=== PATIENT | male | born 1965 | race Caucasian/White ===

== ENCOUNTER 2019-12-05 20:22 | Observation (INO) | payer OTHER ==
[~2019-12-05] VITALS: Ht 172.7 cm; Wt 117.9 kg
[2019-12-05 20:27] VITALS: BP 144/82
--- NOTE | 2019-12-05 20:45 | NUR ---
PT AMBULATED TO BED 3.
--- NOTE | 2019-12-05 20:49 | NUR ---
PT 54 Y/O MALE BIB DAUGHTER FOR SYCOPAL EPISODE. PER PT HE HAS BEEN FEELING DIZZY ALL DAY AT WORK AND WHEN HE WAS EATING DINNER HE PASSED OUT. PER DAUGHTER PT HIT HEAD WHEN HE PASSED OUT. NEURO ASSESSMENT DONE. PT AAO X4. PERRL. SPEECH CLEAR. UE AND LE EQUAL STRENGTH. PT LUNGS ARE CLEAR A/P BILAT. PT NOTED WITH COUGH X 1 DAY. FEBRILE. TEMP 102.6. COOLING MEASURES IN PLACE. BS X4 PRESENT. DENIES N/V. DIARRHEA X 2 DAYS. DAUGHTER AT BEDSIDE. MED HX: NONE ALLERGIES: NKA
[2019-12-05] MEDS ORDERED: NACL 0.9% 1,000 ML IV ONE (20:50)
--- NOTE | 2019-12-05 20:54 | NUR ---
XRAY AT BEDSIDE.
[2019-12-05 21:09] LABS: BASOPHILS # (AUTO) 0.1 K/uL (0.00-0.22); BASOPHILS % (AUTO) 1.2 % (0.0-2.0); EOSINOPHILS % (AUTO) 0.2 % (0.0-4.0); HEMATOCRIT 31.4 % (36-52); LYMPHOCYTES # (AUTO) 0.6 K/uL (2.0-11.5); LYMPHOCYTES % (AUTO) 11.2 % (20.5-51.1); MEAN CORPUSCULAR HEMOGLOBIN 23 pg (27-31); MEAN CORPUSCULAR HGB CONC 32 g/dL (33-37); MEAN CORPUSCULAR VOLUME 71.2 fL (80-94); MONOCYTES % (AUTO) 17.4 % (1.7-9.3); NEUTROPHILS # (AUTO) 3.8 K/uL (1.8-7.7); PLATELET COUNT (AUTO) 168 K/uL (140-450); RED BLOOD CELL COUNT(AUTO) 4.41 MIL/uL (4.20-6.10); RED CELL DISTRIBUTION WIDTH 19.3 % (11.6-13.7); WHITE BLOOD COUNT (AUTO) 5.5 K/uL (4.8-10.8)
[2019-12-05] MEDS ORDERED: ACETAMINOPHEN EXTRA STRENGTH 500 MG TAB PO ONE (21:10)
--- NOTE | 2019-12-05 21:12 | NUR ---
PT TAKEN TO CT.
--- NOTE | 2019-12-05 21:23 | NUR ---
PT RETURNED FROM CT IN BED.
[2019-12-05 21:30] LABS: ALBUMIN 3.7 g/dL (3.4-5.0); ANION GAP 14.5 (8-16); CARBON DIOXIDE 24.6 mmol/L (21-32); CREATININE 1.4 mg/dL (0.6-1.3); POTASSIUM 4.1 mmol/L (3.5-5.1); TOTAL BILIRUBIN 0.6 mg/dL (0.0-1.0)
--- NOTE | 2019-12-05 22:57 | NUR ---
DR BLANTON AT BEDSIDE.
[2019-12-05] MEDS ORDERED: ONDANSETRON 4 MG/2 ML VIAL IVP PRN (23:05)
[2019-12-05] MEDS ORDERED: ASPIRIN 81 MG TAB.CHEW PO ONE (23:05)
[2019-12-05] MEDS ORDERED: MORPHINE SULFATE 4 MG/ML SYR IVP PRN (23:05)
[2019-12-05] MEDS ORDERED: ZOLPIDEM 5 MG TAB PO PRN (23:05)
[2019-12-05] MEDS ORDERED: HYDROcodone/APAP 5/325 MG 1 TAB TAB PO PRN (23:05)
[2019-12-05] MEDS ORDERED: ALBUTEROL 0.083% 2.5 MG/3 ML NEBU INH PRN (23:05)
[2019-12-05] MEDS ORDERED: ACETAMINOPHEN 325 MG TAB PO PRN (23:05)
[2019-12-05] MEDS ORDERED: LORazepam 2 MG/ML VIAL IVP PRN (23:05)
--- NOTE | 2019-12-05 23:25 | NUR ---
PT RESTING IN BED EYES CLOSED. IVF NS 0.9% RUNNING @ 100 ML/HR. PT IV SITE IS PATENT. NO REDNESS, SWELLING OR C/O PAIN. PT RESPIRATIONS ARE EVEN AND UNLABORED. PT O2 SAT @ 97% ON 2L/MIN NC. PT TEMP DECREASED TO 100.5. COOLING MEASURES IN PLACE. PT ON MONITOR. PT DENIES PAIN AT THIS TIME. PT DAUGHTER AT BEDSIDE.
[2019-12-05 23:40] VITALS: BP 106/62
--- NOTE | 2019-12-05 23:40 | NUR ---
Patient will be admitted to care of . Admited to [facility]. Will go to room 110B. Belongings list completed. Report to BETTYE URELAS.
--- NOTE | 2019-12-05 23:40 | NUR ---
RECEIVED BEDSIDE REPORT FROM ER NURSE. PT CAME IN [facility] AND ABLE TO AMBULATE TO [facility] BED. PT BREATHING EVEN AND UNLABORED WITH 2LPM VIA NC. IV SITE ON LAC, 20G, PATENT, INTACT, AND ASYMPTOMATIC. SKIN INTACT, WARM AND DRY TO TOUCH. DX: SYNCOPE. INFLUENZA A POSITIVE, DROPLET PRECAUTION IN PLACE, MRSA SWAB DONE, VS CHECKED, TEMP 101.2, APPLIED ICE PACKS, WILL ADMINISTER TYLENOL. BED IN LOW POSITION, CALL LIGHT WITHIN REACH.
--- NOTE | 2019-12-06 01:04 | NUR ---
TEMP CHECKED, 99.3 WILL CONTINUE TO MONITOR.
--- NOTE | 2019-12-06 02:38 | NUR ---
PT SLEEPING IN BED COMFORTABLY. NO ACUTE DISTRESS NOTED.
[2019-12-06 04:00] VITALS: BP 116/53
--- NOTE | 2019-12-06 04:00 | NUR ---
VS CHECKED, WITHIN PT'S BASELINE, WILL CONTINUE TO MONITOR.
--- NOTE | 2019-12-06 06:00 | NUR ---
NS ONE TIME 1L DONE. PT IS SL FROM NOW.
[2019-12-06 06:21] LABS: BASOPHILS # (AUTO) 0.1 K/uL (0.00-0.22); BASOPHILS % (AUTO) 1.7 % (0.0-2.0); HEMATOCRIT 29.7 % (36-52); HEMOGLOBIN 9.4 g/dL (12.0-18.0); LYMPHOCYTES # (AUTO) 0.6 K/uL (2.0-11.5); LYMPHOCYTES % (AUTO) 16.8 % (20.5-51.1); MEAN CORPUSCULAR HEMOGLOBIN 23 pg (27-31); MEAN CORPUSCULAR HGB CONC 32 g/dL (33-37); MEAN CORPUSCULAR VOLUME 71.2 fL (80-94); MONOCYTES # (AUTO) 0.7 K/uL (0.8-1.0); MONOCYTES % (AUTO) 19.8 % (1.7-9.3); NEUTROPHILS # (AUTO) 2.2 K/uL (1.8-7.7); NEUTROPHILS % (AUTO) 61.7 % (42.2-75.2); PLATELET COUNT (AUTO) 162 K/uL (140-450); RED BLOOD CELL COUNT(AUTO) 4.17 MIL/uL (4.20-6.10); RED CELL DISTRIBUTION WIDTH 18.9 % (11.6-13.7); WHITE BLOOD COUNT (AUTO) 3.6 K/uL (4.8-10.8)
--- NOTE | 2019-12-06 06:39 | NUR ---
PT IN STABLE CONDITION, WILL ENDORSE PT TO DAY SHIFT NURSE FOR CONTINUOUS CARE.
[2019-12-06 06:41] LABS: ALBUMIN 3.4 g/dL (3.4-5.0); ANION GAP 11.8 (8-16); CARBON DIOXIDE 27.1 mmol/L (21-32); POTASSIUM 3.9 mmol/L (3.5-5.1); TOTAL BILIRUBIN 0.5 mg/dL (0.0-1.0)
--- NOTE | 2019-12-06 07:21 | NUR ---
RECEIVED REPORT FROM AUTOCUTTER NURSE. PT IS IN BED AWAKE AND RESPONDING. NO DISTRESS NOTED AT HIS TIME. NO COMPLAINS OF PAIN REPORTED. CALL LIGHT IN REACH.
[2019-12-06 08:00] VITALS: BP 130/74
--- NOTE | 2019-12-06 08:16 | NUR ---
PATIENT HAS BEEN SCREENED AND CATEGORIZED MODERATE NUTRITION RISK. PATIENT WILL BE SEEN WITHIN 3-5 DAYS OF ADMISSION. 12/08/19 12/10/[address]
[2019-12-06] MEDS ORDERED: ASPIRIN 81 MG TAB.CHEW PO SCH (09:00)
[2019-12-06 12:00] VITALS: BP 135/82
--- NOTE | 2019-12-06 13:09 | NUR ---
PT WAS DISCHARGED TODAY. DISCHARGE INSTRUCTIONS GIVEN TO PATIENT. PT WILL FOLLOW UP WITH PCP. PT WAS STEADY AT DISCHARGE. PT WALKED WITH STEADY GAIT UPON DISCHARGE. SKIN INTACT. PT WAS ALERT AND RESPONSIVE. PT WILL FOLLOW UP WITH PCP UPON DISCHARGE. BELONGINGS WITH PATIENT. ID BAND REMOVED. IV REMOVED. NO ACTIVE BLEEDING NOTED. PT WAS ACCOMPANIED BY TO HIS CAR. NO DISCHARGE PRESCRIPTIONS GIVEN TO PATIENT.
== END 2019-12-06 12:30 | disposition home or self-care (01) ==
LOC: MED 20:22 → MTU 23:06 → INTOOBSV 23:06
PROVIDERS: ADMIT Internal Medicine Pulmonary Disease; ATTEND Internal Medicine Pulmonary Disease
DX: R55 Syncope and collapse (principal); J06.9 Acute upper respiratory infection, unspecified; E66.9 Obesity, unspecified; J09.X2 Influenza due to identified novel influenza A virus with other respiratory manifestations; R79.89 Other specified abnormal findings of blood chemistry; Z68.39 Body mass index [BMI] 39.0-39.9, adult
CPT/HCPCS: 36415; 70450; 71045; 72125; 80053; 84484; 85025; 87081; 87804; 93005; 96360; 96361; 99285; G0378; Q0092

== ENCOUNTER 2022-07-14 13:43 | Emergency (ER) | payer OTHER ==
[~2022-07-14] VITALS: Ht 169.4 cm; Wt 117.9 kg
[2022-07-14 13:49] VITALS: BP 178/120
--- NOTE | 2022-07-14 14:22 | NUR ---
PT W/C ASSISTED TO ER BED 10
--- NOTE | 2022-07-14 14:24 | NUR ---
PT C/O LEFT WRIST PAIN S/P FALL. +DEFORMITY.
[2022-07-14] MEDS ORDERED: fentaNYL citrate 0.05 MG/ML VIAL IVP ONE (14:25)
[2022-07-14] MEDS ORDERED: PROPOFOL 200 MG/20 ML VIAL IV ONE ×2 (14:25→16:10)
--- NOTE | 2022-07-14 15:05 | NUR ---
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
[2022-07-14] MEDS ORDERED: MORPHINE SULFATE 4 MG/ML SYR IVP ONE (15:25)
[2022-07-14] MEDS ORDERED: IBUP-2213 PO (16:28)
[2022-07-14] MEDS ORDERED: ACET-8386 PO (16:28)
[2022-07-14 17:06] VITALS: BP 144/70
--- NOTE | 2022-07-14 17:21 | NUR ---
Patient discharged with v/s stable. Written and verbal after care instructions given and explained. Patient alert, oriented and verbalized understanding of instructions. Ambulatory with steady gait. All questions addressed prior to discharge. ID band removed. Patient advised to follow up with PMD. Rx of MOTRIN,NORCO given. Patient educated on indication of medication including possible reaction and side effects. Opportunity to ask questions provided and answered.
== END 2022-07-14 17:21 | disposition home or self-care (01) ==
LOC: MED 13:43
DX: S52.572A Other intraarticular fracture of lower end of left radius, initial encounter for closed fracture (principal); W11.XXXA Fall on and from ladder, initial encounter; Y93.89 Activity, other specified; Y92.89 Other specified places as the place of occurrence of the external cause; Y99.8 Other external cause status
CPT/HCPCS: 25605; 73060; 73090; 73110; 96374; 99152; 99285; J2704; J3010

== ENCOUNTER 2023-10-17 14:16 | Emergency (ER) | payer OTHER ==
[~2023-10-17] VITALS: Ht 172.7 cm; Wt 81.6 kg
[~2023-10-17 14:16] MED LIST: ACET-8905 PO; IBUP-2213 PO
[2023-10-17 14:19] VITALS: BP 180/100; PULSE 110; RESP 20; TEMP 98.1; O2SAT 95; O2SAT 97
[2023-10-17 14:36] VITALS: BP 166/101; PULSE 108; RESP 16; TEMP 98.1; O2SAT 95
== END 2023-10-17 16:48 | disposition home or self-care (01) ==
LOC: MED 14:16
DX: S01.01XA Laceration without foreign body of scalp, initial encounter (principal); I10 Essential (primary) hypertension; Z79.899 Other long term (current) drug therapy; Z79.1 Long term (current) use of non-steroidal anti-inflammatories (NSAID); V89.2XXA Person injured in unspecified motor-vehicle accident, traffic, initial encounter; Y93.89 Activity, other specified; Y92.410 Unspecified street and highway as the place of occurrence of the external cause; Y99.8 Other external cause status
CPT/HCPCS: 70450; 72125; 99284